=== PATIENT | male | born 1970 | race Native Hawaiian/Other Pacific Islander ===

== ENCOUNTER 2018-05-12 08:38 | Outpatient (CLI) | payer BC | END 2018-05-12 20:21 | disposition home or self-care (01) | LOC: US 08:38 | DX: R10.11 Right upper quadrant pain (principal) ==

== ENCOUNTER 2018-11-29 08:35 | Outpatient (CLI) | payer BC | END 2018-11-29 20:14 | disposition home or self-care (01) | LOC: CT 08:35 | DX: R10.84 Generalized abdominal pain (principal) | CPT/HCPCS: 36415; 82565; 84520; Q9963 ==